=== PATIENT | female | born 1995 | race Caucasian/White ===

== ENCOUNTER 2023-12-21 21:49 | Emergency (ER) | payer OTHER, SELFPAY ==
[2023-12-21 21:54] VITALS: BP 122/74
[2023-12-21 22:13] LABS: Urine Albumin Negative (Neg - Trace); Urine Bilirubin Negative (Negative); Urine Character Clear (Clear); Urine Color Yellow; Urine Glucose Negative (Negative); Urine Ketone Negative (Negative); Urine Leukocyte Negative (Negative); Urine Nitrite Negative (Negative); Urine Occult Blood Negative (Negative); Urine Urobilinogen Negative (Neg - 1+); Urine pH 6.5 (5.0-9.0)
[2023-12-21 22:16] LABS: % Basophils 0.6 % (0-2); % Eosinophils 1.4 % (0-6); % Immature Granulocytes 0.1 % (0-0.5); % Lymphocytes 40.6 % (20.5-51.1); % Monocytes 8.4 % (1.7-9.3); % Neutrophils 48.9 % (42.2-75.2); Absolute Basophils 0.1 10^3/uL (0-0.2); Absolute Eosinophils 0.1 10^3/uL (0-0.7); Absolute Lymphocytes 3.8 10^3/uL (1.2-3.4); Absolute Monocytes 0.8 10^3/uL (0.1-0.6); Absolute Neutrophils 4.6 10^3/uL (1.4-6.5); Hematocrit 37.6 % (37.0-47.0); Hemoglobin 12.1 g/dL (12.0-16.0); Mean Corp Hgb Conc. 32.2 g/dL (33.0-37.0); Mean Corpuscular Hgb 26.5 pg (27.0-31.0); Mean Corpuscular Volume 82.3 fL (81.0-99.0); Mean Platelet Volume 10.8 fL (7.4-10.4); Nucleated Red Blood Cells % 0 %; Platelet Count 269 10^3/uL (130-400); Red Blood Cell Count 4.57 10^6/uL (4.20-5.40); Red Cell Dist. Width 13.2 % (11.5-14.5); White Blood Cell Count 9.4 10^3/uL (4.8-10.8)
[2023-12-21 22:24] LABS: HCG, Serum Qualitative Screen Negative
[2023-12-21 22:28] LABS: ALT (SGPT) 15 U/L (0-35); AST (SGOT) 27 U/L (14-36); Albumin 4.4 g/dl (3.5-5.0); Alkaline Phosphatase 67 U/L (38-126); Blood Urea Nitrogen 18 mg/dl (7-17); Calcium 9.8 mg/dl (8.4-10.2); Carbon Dioxide 25 mmol/L (22-30); Chloride 102 mmol/L (98-107); Glucose 98 mg/dl (70-99); Potassium 4.3 mmol/L (3.5-5.1); Sodium 140 mmol/L (135-145); Total Bilirubin 0.4 mg/dl (0.2-1.3); Total Protein 7.3 g/dl (6.3-8.2); eGFR > 60.00
[2023-12-21 22:30] LABS: Lipase 245 U/L (23-300)
--- NOTE | 2023-12-22 00:59 | ED.GENMED ---
History of Present Illness
<DEISY Vergara - Last Filed: 12/22/23 01:17>
General
Chief Complaint: Abdominal Symptoms
Source: patient
Exam Limitations: none
Time Seen by Provider: 12/22/23 00:42
Nursing documentation reviewed up to this point in time: agreed with
Travel History
Have you had any contact with someone who has COVID-19?: No
Do you have any symptoms of coronavirus? Fever > 100 degrees, chills, cough, shortness of breath, sore throat, loss of taste or smell, muscle aches, or headache?: No
History of Present Illness
History of Present Illness:
28 y/o F presents to ED complaining of abdominal pain and nausea starting 1930. Patient states the pain is a constant dull pain in the center top of her abdomen. She states the pain was initially 7/10 but is currently 4/10. She took Pepcid at 2100
which she states 'took the edge off' but is still having the pain. She had a Quesadilla for dinner around 0, about an hour before the pain started. Patient states the pain is better with rest and worse with walking. She does report that walking
also causes the pain to go into her chest and cause it to tighten. She has had normal BM, last BM was yesterday. No strenuous activity or exercise reported. Patient did have nephrectomy in January 2021 and went to ED for abdominal pain afterwards.
However, she states this pain does not feel similar to that and is not unbearable. She denies sick contacts. Denies vomiting, diarrhea, constipation, congestion, cough, fever, chills, chest pain, dizziness or LOC.
If applicable-neuro sx onset
Onset of symptoms known: Yes
Date of onset of symptoms: 12/21/23
Time of onset of symptoms: 19:30
Past History
<DEISY Vergara - Last Filed: 12/22/23 01:17>
Past History
ED Past Medical History: None and Other
ED Past Surgical History: None and Other
Social History
Tobacco: Non-smoker
Alcohol: None
Drug: None
Personal: Single
Living: with family
Employment: Employed
Review of Systems
<ST UrsulaAZ - Last Filed: 12/22/23 01:17>
Review of Systems
Allergies reviewed?: Yes
All Other Systems: ROS reviewed and negative except as documented in HPI and ROS
Constitutional: Reports no symptoms
EENT: Reports no symptoms
Respiratory: Reports no symptoms
Cardiac: Reports no symptoms
ABD/GI: Reports abdominal pain and nausea
: Reports no symptoms
Musculoskeletal: Reports no symptoms
Skin: Reports no symptoms
Neurological: Reports no symptoms
Endocrine: Reports no symptoms
Hematologic/Lymphatic: Reports no symptoms
Psychiatric: Reports no symptoms
Phy Exam
<Fernando Bethea [facility] - Last Filed: 12/22/23 01:17>
General Physical Exam
General Presentation: well appearing and no apparent distress
General age: appears stated age
General Skin: warm
General Habitus: normal
General Mental: alert
General Hydration: appears well hydrated
ENT Exam
ENT Exam: EOMI, TM's normal and pharynx normal
Eye Exam
Eye Exam: PERRL, EOMI and conjunctiva normal
Cardiovascular Exam
Cardiovascular Exam: regular rate/rhythm, no edema, no gallop, no murmur and normal peripheral pulses
Pulmonary Exam
Pulmonary Exam: lungs clear, no respiratory distress, no rales, no crackles and no rhonchi
Gastrointestinal Exam
Gastrointestinal Exam: normal bowel sounds, soft, non distended, surgical scar and tender (moderately tender in epigastric region )
Neurological Exam
Neurological Exam: alert and oriented x3
Musculoskeletal Exam
Musculoskeletal Exam: other (no sternal tenderness )
Skin Exam
Skin Exam: normal color, warm/dry and no rash
Psychiatric Exam
Psychiatric Exam: normal mood/affect
Course
<Fernando BetheaDEISY - Last Filed: 12/22/23 01:17>
Orders/Labs/Results
Orders:
Orders
12/21/23 21:59
Test Result ONCE
12/21/23 22:05
Complete Blood Count/With Diff Urgent
Comprehensive Metabolic Panel Urgent
HCG, Serum Qualitative Screen Urgent
Lipase Urgent
Urinalysis Reflex To Culture Urgent
Date Specimen was Collected: 12/21/23
Time Specimen was Collected: 21:59
12/22/23 01:04
US Abdomen Complete/Upper Urgent
Comment:
Reason For Exam: acute epigastric pain
12/22/23 01:05
EKG [Electrocardiogram (*1)] Urgent
Reason for Study: Abdominal Pain
12/22/23 02:11
Mag Hydrox/Al Hydrox/Simeth [Maalox] 30 ml Phenobarb/Hyoscy/Atropine/Scop [] 10 ml Viscous Lidocaine 2% [Xylocaine Viscous Cup] 10 ml PO NOW
12/22/23 02:16
Mag Hydrox/Al Hydrox/Simeth [Maalox] 30 ml .ROUTE .STK-MED ONE
Phenobarb/Hyoscy/Atropine/Scop [] 10 ml .ROUTE .STK-MED ONE
Viscous Lidocaine 2% [Xylocaine Viscous Cup] 15 ml .ROUTE .STK-MED ONE
Abnormal Lab Results
12/21/23
22:05
MCH 26.5 L pg
(27.0-31.0)
MCHC 32.2 L g/dL
(33.0-37.0)
MPV 10.8 H fL
(7.4-10.4)
Absolute Lymphs (auto) 3.8 H 10^3/uL
(1.2-3.4)
Absolute Monos (auto) 0.8 H 10^3/uL
(0.1-0.6)
BUN 18 H mg/dl
(7-17)
Creatinine 1.2 H mg/dL
(0.6-1.0)
12/21/23 22:05
12/21/23 22:05
Vital Signs
Initial and Last Documented VS:
Initial Vital Signs
Temp Pulse Resp BP Pulse Ox
98.8 F 69 18 122/74 98
12/21/23 21:54 12/21/23 21:54 12/21/23 21:54 12/21/23 21:54 12/21/23 21:54
Last Documented Vital Signs
Temp Pulse Resp BP Pulse Ox
98.1 F 61 16 113/70 100
12/22/23 01:45 12/22/23 01:45 12/22/23 01:45 12/22/23 01:45 12/22/23 01:45
<Kaylah Gaitan, DO - Last Filed: 12/22/23 03:06>
Orders/Labs/Results
Orders:
Orders
12/21/23 21:59
Test Result ONCE
12/21/23 22:05
Complete Blood Count/With Diff Urgent
Comprehensive Metabolic Panel Urgent
HCG, Serum Qualitative Screen Urgent
Lipase Urgent
Urinalysis Reflex To Culture Urgent
Date Specimen was Collected: 12/21/23
Time Specimen was Collected: 21:59
12/22/23 01:04
US Abdomen Complete/Upper Urgent
Comment:
Reason For Exam: acute epigastric pain
12/22/23 01:05
EKG [Electrocardiogram (*1)] Urgent
Reason for Study: Abdominal Pain
12/22/23 02:11
Mag Hydrox/Al Hydrox/Simeth [Maalox] 30 ml Phenobarb/Hyoscy/Atropine/Scop [] 10 ml Viscous Lidocaine 2% [Xylocaine Viscous Cup] 10 ml PO NOW
12/22/23 02:16
Mag Hydrox/Al Hydrox/Simeth [Maalox] 30 ml .ROUTE .STK-MED ONE
Phenobarb/Hyoscy/Atropine/Scop [] 10 ml .ROUTE .STK-MED ONE
Viscous Lidocaine 2% [Xylocaine Viscous Cup] 15 ml .ROUTE .STK-MED ONE
Abnormal Lab Results
12/21/23
22:05
MCH 26.5 L pg
(27.0-31.0)
MCHC 32.2 L g/dL
(33.0-37.0)
MPV 10.8 H fL
(7.4-10.4)
Absolute Lymphs (auto) 3.8 H 10^3/uL
(1.2-3.4)
Absolute Monos (auto) 0.8 H 10^3/uL
(0.1-0.6)
BUN 18 H mg/dl
(7-17)
Creatinine 1.2 H mg/dL
(0.6-1.0)
12/21/23 22:05
12/21/23 22:05
Vital Signs
Initial and Last Documented VS:
Initial Vital Signs
Temp Pulse Resp BP Pulse Ox
98.8 F 69 18 122/74 98
12/21/23 21:54 12/21/23 21:54 12/21/23 21:54 12/21/23 21:54 12/21/23 21:54
Last Documented Vital Signs
Temp Pulse Resp BP Pulse Ox
98.1 F 61 16 113/70 100
12/22/23 01:45 12/22/23 01:45 12/22/23 01:45 12/22/23 01:45 12/22/23 01:45
<DEISY Vergara - Last Filed: 12/22/23 01:17>
MDM/Problems Addressed
Differential Diagnosis Includes:
GERD
Viral gastro
Cholecystitis
MSK pain
AAA
Costochondritis
MDM/Problems Addressed:
Patient presents with epigastric pain and nausea x 6 hours. Physical exam significant for epigastric tenderness. GERD considered given pain shortly after eating and pain in epigastric region. Cholecystitis considered given patient pain started after
ingestion of fatty food, location of pain and acute onset of pain. MSK unlikely given no recent activity. AAA unlikely given patient young and with no risk factor. Will order EKG given chest tightness. Costochondritis unlikely given no reproducible
sternal tenderness.
<DEISY Vergara - Last Filed: 12/22/23 01:17>
*Critical Care Note
Total Time (30-74mins, 75-104mins- exclusive of procedures): Not Applicable
<Kaylah Gaitan DO - Last Filed: 12/22/23 03:06>
*Radiology
Radiology exam reviewed: radiology read reviewed (Abdominal ultrasound shows contracted gallbladder but no stones nor sludge, normal gallbladder wall, no ductal dilatation, no pericholecystic fluid.)
*Pulse Oximetry
Patient hypoxic: no
*EKG
Interpreted by ED Provider?: Yes
Interpretation: normal
Comparison EKG: no comparison EKG present
Heart Rate: 58
Rate: bradycardiac
Rhythm: sinus
[place]: normal axis
Interval: normal interval
QRS Pattern: normal QRS
Ischemia: no ischemia
ED Attending Note
<DEISY Vergara - Last Filed: 12/22/23 01:17>
-
Portions of this chart may have been created with voice recognition software.� Occasional wrong word or��sound alike� substitutions may have occurred due to the inherent limitations of voice recognition software.
<Kaylah Gaitan DO - Last Filed: 12/22/23 03:06>
ED Attending Note
Patient seen and examined by attending physician: Yes
I performed the substantive portion of visit, reviewed & personally made and approve the management plan that is documented in note by myself or CURRY.: Yes
I performed a history and physical exam of patient and discussed management with resident, I reviewed resident's note and agree with documented findings and plan of care.: Yes
ED Attending Note:
This is a 28-year-old female who complains of somewhat abrupt onset of moderate to severe epigastric pain that began around 7:30 PM accompanied with moderate nausea without vomiting. She does admit to mild, intermittent radiation of pain to her
lower substernal chest region. She denies back pain, no coughing or shortness of breath. She denies diaphoresis but does admit to feeling hot with onset of pain. She took a dose of Pepcid around 9 PM with questionable moderate improvement. She
ate quesadilla for dinner around 6:30 PM. Pain began about 30 to 45 minutes after finishing dinner.
No history of similar episodes of pain.
She denies risk of , has Nexplanon implant.
She has history of left nephrectomy�for donation January 2021. She avoids NSAIDs since nephrectomy.
GENERAL: 28-year-old female appears her stated age, awake and alert, pleasant, appears in no acute distress. Significant other is accompanying.
EYE: anicteric
NECK: Supple, nontender, no meningismus, no significant adenopathy.
ENT: oral mucosa is moist. No rhinorrhea.
CARDIAC: Regular rate and rhythm. no murmur.
LUNGS: Clear breath sounds bilaterally, no acute respiratory distress, no wheezes/rales/rhonchi
ABDOMEN: Soft, nondistended, mild epigastric tenderness with palpation, no r/g, no cvat. normoactive BS.
NEUROLOGICAL: Alert and oriented x3, no focal neuro deficits. Gait is steady.
SKIN: Warm and dry, normal color, skin intact. No rash.
MUSCULOSKELETAL: No C/C/E. peripheral pulses are full and equal b/l. No palpable tenderness.
PSYCH: Normal and appropriate interaction.
Concern for acute gastritis, biliary colic/cholecystitis, GERD. ACS is unlikely.
No history of thromboembolism nor significant risk factors for thromboembolism and pain is clearly epigastric, abdominal and without associated shortness of breath no cough.
Labs are unremarkable save for creatinine of 1.2 which is stable and unchanged from previous creatinine in April 2021 likely related to post nephrectomy state.
LFTs, lipase within normal limits. hCG is negative.
Urinalysis is unremarkable.
Will check EKG for completeness sake and will check abdominal ultrasound to assess for potential gallstones, cholecystitis.
If unremarkable will trial a GI cocktail for potential gastritis/GERD.
12/22/2023 0303 AM
EKG and abdominal ultrasound are unremarkable.
Patient has had complete relief of epigastric pain after GI cocktail, resting comfortably.
I suspect acute gastritis, GERD as cause for pain.
Recommend supportive measures, avoiding spicy or fried foods, avoid caffeinated beverages as well as alcoholic beverages.
Recommend she continue [id number] Pepcid, twice daily over the next week and then as needed thereafter.
Prompt follow-up with PCP for recheck.
Return precautions discussed.
Discharge Plan
Departure
Patient Disposition: Home (Routine Discharge)
Date of Disposition: 12/22/23
Time of Disposition: 03:02
Patient with high blood pressure during this ER visit?: No
Condition: Good
Discharge Problem:
Acute gastritis, acute GERD
Instructions: Gastritis (DC), Acid reflux and gastroesophageal reflux disease in adults
Prescriptions:
No Action
No Meds [No Current Medications]
0
ondansetron 4 MG tablet,disintegrating
4 mg PO TIDPRN PRN (Reason: NAUSEA) Qty: 10 0RF
Referrals:
Dian Sandoval PA-C [Family Provider] - Call in 1-3 days for appt
Activity Restrictions/Additional Instructions:
Over the next several days avoid spicy or fried foods, avoid caffeinated beverages as well as alcoholic beverages.
Continue Pepcid twice daily over the next week, thereafter you may take Pepcid twice daily as needed for epigastric/upper abdominal pain.
Follow-up with your primary care physician next week for recheck.
If severe upper abdominal pain returns and is unrelieved with antacid or Pepcid or if accompanied with fever, intractable vomiting or any other worrisome symptom, prompt return to the ER for further evaluation.
Interventions
Interventions:
ED- Fall Risk Assessment Last Done: 12/22/23 01:45
LF-Upioif-Uwqrlhxmur Assessment Last Done: 12/22/23 01:45
[2023-12-22 01:45] VITALS: BP 113/70
[2023-12-22] MEDS: MAALOX 50 PO (02:17)
== END 2023-12-22 03:33 | disposition home or self-care (01) ==
LOC: EMR 21:49
PROVIDERS: Emergency Medicine; EMERGENCY PHYSICIAN Emergency Medicine; FAMILY PHYSICIAN Student in an Organized Health Care Education/Training Program
DX: K29.00 Acute gastritis without bleeding (principal); K21.9 Gastro-esophageal reflux disease without esophagitis; Z90.5 Acquired absence of kidney
CPT/HCPCS: 99285; 76700; 80053; 81003; 83690; 84703; 85025; 93005

== ENCOUNTER 2024-02-27 14:56 | Emergency (ER) | payer OTHER, SELFPAY ==
[2024-02-27] VITALS (7 sets, daily range): BP systolic 97–140; BP diastolic 51–84; BMI 27.6
[2024-02-27 15:25] LABS: % Basophils 0.2 % (0-2); % Eosinophils 0.2 % (0-6); % Immature Granulocytes 0.4 % (0-0.5); % Lymphocytes 16.5 % (20.5-51.1); % Monocytes 1.1 % (1.7-9.3); % Neutrophils 81.6 % (42.2-75.2); Absolute Lymphocytes 0.9 10^3/uL (1.2-3.4); Absolute Monocytes 0.1 10^3/uL (0.1-0.6); Absolute Neutrophils 4.5 10^3/uL (1.4-6.5); Hematocrit 35.1 % (37.0-47.0); Hemoglobin 11.6 g/dL (12.0-16.0); Mean Corpuscular Volume 78.5 fL (81.0-99.0); Mean Platelet Volume 10.6 fL (7.4-10.4); Nucleated Red Blood Cells % 0 %; Platelet Count 231 10^3/uL (130-400); Red Blood Cell Count 4.47 10^6/uL (4.20-5.40); Red Cell Dist. Width 15.9 % (11.5-14.5); White Blood Cell Count 5.5 10^3/uL (4.8-10.8)
[2024-02-27 15:43] LABS: HCG, Serum Qualitative Screen Negative
[2024-02-27 15:47] LABS: ALT (SGPT) 20 U/L (0-35); AST (SGOT) 29 U/L (14-36); Albumin 4.7 g/dl (3.5-5.0); Alkaline Phosphatase 75 U/L (38-126); Blood Urea Nitrogen 16 mg/dl (7-17); Calcium 9.8 mg/dl (8.4-10.2); Carbon Dioxide 20 mmol/L (22-30); Chloride 106 mmol/L (98-107); Creatine Phosphokinase 186 U/L (30-135); Glucose 126 mg/dl (70-99); Potassium 4.6 mmol/L (3.5-5.1); Sodium 137 mmol/L (135-145); Total Bilirubin 0.7 mg/dl (0.2-1.3); Total Protein 7.5 g/dl (6.3-8.2); eGFR > 60.00
--- NOTE | 2024-02-27 17:16 | EDRN ---
Zuly HAM in room w/pt at this time.
--- NOTE | 2024-02-27 17:27 | ED.GENMED ---
History of Present Illness
<Lauren Avila PA-C - Last Filed: 02/28/24 01:45>
General
Chief Complaint: Generalized Pain
Source: patient
Exam Limitations: none
Time Seen by Provider: 02/27/24 16:39
Nursing documentation reviewed up to this point in time: agreed with
Travel History
Have you had any contact with someone who has COVID-19?: No
Do you have any symptoms of coronavirus? Fever > 100 degrees, chills, cough, shortness of breath, sore throat, loss of taste or smell, muscle aches, or headache?: No
History of Present Illness
History of Present Illness:
28-year-old female with a history of donated left kidney in 2020, baseline creatinine of 1.1 presents with sensation of xpzq-qsr-dlfqbbo and body pain from head to toe that started at 115 today while she was at work.
She ran a [place] race in the morning yesterday, this is not something she does regularly but she does run occasionally. She drank a lot of fluids yesterday and even today. She does not feel like she was dehydrated at all. She had no pain or symptoms
until 115 today. Patient says she similarly had an event after her nephrectomy when she became like this and it was secondary to hypocalcemia. Patient was given a glass of milk and it fully resolved within 10 minutes. Patient says that when this
began she drank more than an 8 ounce glass of milk and had no resolution of symptoms. She in fact felt worse. She says she started to go into a panic and was hyperventilating. She was feeling a little short of breath at that time because of the
anxiety. Patient says that since being here her pain has improved without treatment. She is now just reporting a 2 out of 10 discomfort from an 8 out of 10 but now she has a headache and feels hot. She has had a lightly fluctuating sore throat
but is able to speak and swallow normally. She has not had any cough or cold symptoms. Is been no change to her urine output or urination. She has no nausea or vomiting or diarrhea. She was bit by a tick last year but it was less than 72 hours
and she never developed a Lyme rash.
Past History
<Lauren Avila PA-C - Last Filed: 02/28/24 01:45>
Past History
ED Past Medical History: Other (Donated left kidney)
ED Past Surgical History: Other (Left nephrectomy secondary to donation 2020)
Social History
Tobacco: Non-smoker
Alcohol: None
Drug: None
Personal: Single
Living: with family
Employment: Employed
Review of Systems
<Lauren Avila PA-C - Last Filed: 02/28/24 01:45>
Review of Systems
Allergies reviewed?: Yes
All Other Systems: Not applicable
Phy Exam
<Lauren Avila PA-C - Last Filed: 02/28/24 01:45>
Physical Exam
Physical Exam:
GENERAL: Alert , in no apparent distress looks well, nontoxic, no distress
HEAD: NCAT
EYE: pupils equal and reactive, no nystagmus, no photophobia
NECK: Supple,full rom, nontender, no meningimsus
ENT: o/p clr, mmm. No tonsillar exudate
CARDIAC: Regular rate and rhythm . no edema no tachycardia
LUNGS: Clear breath sounds bilaterally, no acute respiratory distress, no wheezes/rales/rhonchi
ABDOMEN: Soft, without focal tenderness, no r/g, no cvat no mcburney's po;int tendenress;
NEUROLOGICAL: Alert and orientedx 4, cn intact, no facial asymmetry, 5/5 strength in UE/LE, sensation intact, romberg neg, ambulates without assistance, neg pronator drift
SKIN: Warm and dry, skin intact. No rash
MUSCULOSKELETAL: No edema, well perfused.
PSYCH: Normal and appropriate interaction.
Course
<Lauren Avila PA-C - Last Filed: 02/28/24 01:45>
Orders/Labs/Results
Orders:
Orders
02/27/24 15:04
Electrocardiogram (*1) Urgent
Reason for Study: Tachycardia
02/27/24 15:05
EKG- Treatment ONCE
Test Result ONCE
02/27/24 15:11
CPK [Creatine Phosphokinase] Urgent
Complete Blood Count/With Diff Urgent
Comprehensive Metabolic Panel Urgent
HCG, Serum Qualitative Screen Urgent
Monotest Urgent
Comment: ADD ON
02/27/24 17:23
0.9% Sodium Chloride 1000 ml [Nss] 1,000 ml IV BOLUS
Acetaminophen [Tylenol] 1,000 mg PO NOW STA
02/27/24 17:24
Add On- LAB Urgent
Tests Added?: MONO
02/27/24 17:36
COVID-19 Antigen Urgent
Source: Nasal Swab
Influenza A+B Rapid Molecular Urgent
LATRELL Source: Nasal Swab
Specimen Description:
Rapid Strep Group A Urgent
LATRELL Source: Throat/Pharynx
Specimen Description:
Date Specimen was Collected: 02/27/24
Time Specimen was Collected: 17:32
02/27/24 17:41
Urinalysis Reflex To Culture Urgent
Date Specimen was Collected: 02/27/24
Time Specimen was Collected: 17:38
Urine Microscopic Reflex Cult Urgent
Urine Culture Urgent
LATRELL Source: U
Specimen Description:
Date Specimen was Collected: 02/27/24
Time Specimen was Collected: 17:38
02/27/24 19:05
Add On - Microbiology Urgent
Tests Added?: urine culture
Abnormal Lab Results
02/27/24 02/27/24
15:11 17:41
Hgb 11.6 L g/dL
(12.0-16.0)
Hct 35.1 L %
(37.0-47.0)
MCV 78.5 L fL
(81.0-99.0)
MCH 26.0 L pg
(27.0-31.0)
RDW 15.9 H %
(11.5-14.5)
MPV 10.6 H fL
(7.4-10.4)
Absolute Lymphs (auto) 0.9 L 10^3/uL
(1.2-3.4)
Neutrophils % 81.6 H %
(42.2-75.2)
Lymphocytes % 16.5 L %
(20.5-51.1)
Monocytes % 1.1 L %
(1.7-9.3)
Carbon Dioxide 20 L mmol/L
(22-30)
Creatinine 1.1 H mg/dL
(0.6-1.0)
Glucose 126 H mg/dl
(70-99)
Creatine Kinase 186 H U/L
(30-135)
Ur Occult Blood Reflex 1+ A
(Negative)
Urine Bacteria (Reflex) Few A
(Negative)
02/27/24 15:11
02/27/24 15:11
Vital Signs
Temp: 101.1 F
Initial and Last Documented VS:
Initial Vital Signs
Temp Pulse Resp BP Pulse Ox
99.5 F 116 16 140/84 100
02/27/24 15:00 02/27/24 15:00 02/27/24 15:00 02/27/24 15:00 02/27/24 15:00
Last Documented Vital Signs
Temp Pulse Resp BP Pulse Ox
99.5 F 90 16 103/53 96
02/27/24 20:00 02/27/24 20:00 02/27/24 20:00 02/27/24 20:00 02/27/24 20:00
<Rommel Beard PA-C - Last Filed: 03/01/24 08:06>
Orders/Labs/Results
Orders:
Orders
02/27/24 15:04
Electrocardiogram (*1) Urgent
Reason for Study: Tachycardia
02/27/24 15:05
EKG- Treatment ONCE
Test Result ONCE
02/27/24 15:11
CPK [Creatine Phosphokinase] Urgent
Complete Blood Count/With Diff Urgent
Comprehensive Metabolic Panel Urgent
HCG, Serum Qualitative Screen Urgent
Monotest Urgent
Comment: ADD ON
02/27/24 17:23
0.9% Sodium Chloride 1000 ml [Nss] 1,000 ml IV BOLUS
Acetaminophen [Tylenol] 1,000 mg PO NOW STA
02/27/24 17:24
Add On- LAB Urgent
Tests Added?: MONO
02/27/24 17:36
COVID-19 Antigen Urgent
Source: Nasal Swab
Influenza A+B Rapid Molecular Urgent
LATRELL Source: Nasal Swab
Specimen Description:
Rapid Strep Group A Urgent
LATRELL Source: Throat/Pharynx
Specimen Description:
Date Specimen was Collected: 02/27/24
Time Specimen was Collected: 17:32
02/27/24 17:41
Urinalysis Reflex To Culture Urgent
Date Specimen was Collected: 02/27/24
Time Specimen was Collected: 17:38
Urine Microscopic Reflex Cult Urgent
Urine Culture Urgent
LATRELL Source: U
Specimen Description:
Date Specimen was Collected: 02/27/24
Time Specimen was Collected: 17:38
02/27/24 19:05
Add On - Microbiology Urgent
Tests Added?: urine culture
Abnormal Lab Results
02/27/24 02/27/24
15:11 17:41
Hgb 11.6 L g/dL
(12.0-16.0)
Hct 35.1 L %
(37.0-47.0)
MCV 78.5 L fL
(81.0-99.0)
MCH 26.0 L pg
(27.0-31.0)
RDW 15.9 H %
(11.5-14.5)
MPV 10.6 H fL
(7.4-10.4)
Absolute Lymphs (auto) 0.9 L 10^3/uL
(1.2-3.4)
Neutrophils % 81.6 H %
(42.2-75.2)
Lymphocytes % 16.5 L %
(20.5-51.1)
Monocytes % 1.1 L %
(1.7-9.3)
Carbon Dioxide 20 L mmol/L
(22-30)
Creatinine 1.1 H mg/dL
(0.6-1.0)
Glucose 126 H mg/dl
(70-99)
Creatine Kinase 186 H U/L
(30-135)
Ur Occult Blood Reflex 1+ A
(Negative)
Urine Bacteria (Reflex) Few A
(Negative)
02/27/24 15:11
02/27/24 15:11
Vital Signs
Initial and Last Documented VS:
Initial Vital Signs
Temp Pulse Resp BP Pulse Ox
99.5 F 116 16 140/84 100
02/27/24 15:00 02/27/24 15:00 02/27/24 15:00 02/27/24 15:00 02/27/24 15:00
Last Documented Vital Signs
Temp Pulse Resp BP Pulse Ox
99.5 F 90 16 103/53 96
02/27/24 20:00 02/27/24 20:00 02/27/24 20:00 02/27/24 20:00 02/27/24 20:00
<Lauren Avila PA-C - Last Filed: 02/28/24 01:45>
MDM/Problems Addressed
Differential Diagnosis Includes:
rhabdo, uti, hypocalcemia, viral syndrome
MDM/Problems Addressed:
28 y/o F with ho donated kidney, baseline cr 1.1
here with diffuse body pain/pins and needles today
she was hyperventilating on arrival
but has since improved without meds
she has had similar episode post nephrecomty and thought it ws hypocalcemia, resolved after drinking milk
she tried milk withotu relief
she did run a 5K yesterday am but drank a lot of water and didn't feel dehydrated
has now some diffuse back pain, headache and feels warm
denies urinar ysypmtoms
on exam nontoxic
well apeparing
temp 101.1
MMM
heart/lungs clear
abdomen notnender
no cva tendenress
labs reviewed: cpk only 189
cr baseline
ca normal
flu, covid mono, strep all neg
<Lauren Avila PA-C - Last Filed: 02/28/24 01:45>
*Critical Care Note
Total Time (30-74mins, 75-104mins- exclusive of procedures): Not Applicable
<Rommel Beard PA-C - Last Filed: 03/01/24 08:06>
Update Note
Update Note:
March 01 8:05 AM: Throat culture shows group C streptococcus. Patient has significant penicillin allergy. Will prescribe Zithromax. Spoke with patient. Called prescription in.
ED Attending Note
<Lauren Avila PA-C - Last Filed: 02/28/24 01:45>
-
Portions of this chart may have been created with voice recognition software.� Occasional wrong word or��sound alike� substitutions may have occurred due to the inherent limitations of voice recognition software.
Discharge Plan
Departure
Patient Disposition: Home (Routine Discharge)
Date of Disposition: 02/27/24
Time of Disposition: 20:05
Patient with high blood pressure during this ER visit?: No
Condition: Fair
Covid-19: Negative COVID-19
Discharge Problem:
Fever, Myalgia
Instructions: Fever, Adult (DC)
Prescriptions:
New
azithromycin [Zithromax] 250 mg tablet
250 mg PO DAILY Qty: 6 0RF
Referrals:
Dian Madera PA-C [Family Provider] -
Stand Alone Forms: Return to Work
Activity Restrictions/Additional Instructions:
We are not sure the cause of your fever at this time. We tested you for flu and COVID and strep and mono and all of which are negative.
Your urine was not concerning at this time for infection but given urine culture pending. Watch your symptoms closely and if you start having any urinary symptoms you need to turn. Your CPK number rhabdomyolysis was very low which is reassuring.
Calcium is normal. Creatinine was at baseline.
Please make sure to return to the or any severe worsening symptoms like severe back pain, high fever not responding to Tylenol, worsening headache, rash, trouble breathing or cough, etc.
Interventions
Interventions:
*Risk Screen - Suicide Last Done: 02/27/24 17:08
*General Assessment Last Done: 02/27/24 17:08
*Neglect/Abuse Screening Last Done: 02/27/24 17:08
ED- Fall Risk Assessment Last Done: 02/27/24 17:08
*ED COVID-19 Vaccine History Last Done: 02/27/24 17:08
*Nursing Disposition Last Done: 02/27/24 20:30
Discharge Date and Time
Discharge Date/Time: 02/27/24 20:57
Print Language: [place] CITIZ[place]
[2024-02-27 17:50] LABS: Urine Albumin Negative (Neg - Trace); Urine Bilirubin Negative (Negative); Urine Character Clear (Clear); Urine Color Yellow; Urine Glucose Negative (Negative); Urine Ketone Negative (Negative); Urine Leukocyte Negative (Negative); Urine Nitrite Negative (Negative); Urine Occult Blood 1+ (Negative); Urine Specific Gravity 1.005 (<1.030); Urine Urobilinogen Negative (Neg - 1+)
[2024-02-27 17:58] LABS: COVID-19 Antigen Negative (Negative)
[2024-02-27 18:02] LABS: Urine Squamous Cell 0-2 /LPF (Few); Urine White Cell 0-2 /HPF (0-5)
[2024-02-27 18:03] LABS: Monotest Negative (Negative)
[2024-02-27 18:08] LABS: Urine Bacteria Few (Negative); Urine Red Blood Cell 0-2 /HPF (0-2)
[2024-02-27] MEDS: TYLENOL 1000 MG PO (18:18)
[2024-02-27] MEDS: NSS 1000 IV (18:25)
== END 2024-02-27 20:57 | disposition home or self-care (01) ==
LOC: EMR 14:56
PROVIDERS: Physician Assistant; EMERGENCY PHYSICIAN Emergency Medicine; FAMILY PHYSICIAN Student in an Organized Health Care Education/Training Program
DX: R50.9 Fever, unspecified (principal); M79.10 Myalgia, unspecified site
CPT/HCPCS: 99284; 96360; 80053; 81003; 81015; 82550; 84703; 85025; 86308; 87070; 87086; 87147; 87502; 87811; 87880; 93005

== ENCOUNTER → 2024-03-28 17:40 | Outpatient (REF) | payer OTHER, SELFPAY | LOC: RAD 17:40 | PROVIDERS: ATTENDING PHYSICIAN Nurse Practitioner Adult Health; FAMILY PHYSICIAN Student in an Organized Health Care Education/Training Program | DX: N93.9 Abnormal uterine and vaginal bleeding, unspecified (principal) | CPT/HCPCS: 76830; 76856 ==

== ENCOUNTER → 2025-06-14 16:14 | Outpatient (REF) | payer OTHER, SELFPAY | LOC: RAD 16:14 | PROVIDERS: ATTENDING PHYSICIAN Obstetrics & Gynecology Gynecology; FAMILY PHYSICIAN Student in an Organized Health Care Education/Training Program | DX: N83.209 Unspecified ovarian cyst, unspecified side (principal) | CPT/HCPCS: 76830; 76856 ==